=== PATIENT | female | born 1945 | race Hispanic/Latino ===

== ENCOUNTER 2021-08-19 13:35 | Outpatient (CLI) | payer OTHER ==
--- NOTE | 2021-08-19 15:26 | XRay Report ---
Bilateral knee radiographs, frontal and lateral views of each knee provided. HISTORY: Knee pain COMPARISON: None FINDINGS: Right knee: Tricompartmental osteophytes are present. There is mild to moderate narrowing of the late ral compartment with weightbearing. No acute fracture or joint effusion. Left knee: Moderate left knee osteoarthritis, preferentially involving the lateral compartment. Mild genu valgus. No acute fracture or joint effusion. IMPRESSION: Moderate left greater than right knee osteoarthritis. No acute process. Signer Name: Jose Elias Huang MD Signed: 08/19/2021 3:21 PM Workstation Name: [id number]
== END 2021-08-19 13:36 | disposition home or self-care (01) ==
LOC: XRAY 13:35
PROVIDERS: ATTEND Orthopaedic Surgery
DX: M17.0 Bilateral primary osteoarthritis of knee (principal); M71.21 Synovial cyst of popliteal space [Baker], right knee; M71.22 Synovial cyst of popliteal space [Baker], left knee